=== PATIENT | female | born 1955 | race Two or more races ===

== ENCOUNTER 2018-01-01 12:28 | Emergency (ER) | payer BC ==
[2018-01-01 12:44] VITALS: BMI 22.8
--- NOTE | 2018-01-01 13:10 | PDOC ---
Attending Attestation - Resident Resident Name: Calvin Recinos - ED Attending Attestation I have performed the following: I have examined & evaluated the patient, The case was reviewed & discussed with the resident, I agree w/resident's findings & plan, Exceptions are as noted - HPI HPI: 01/01/18 13:20 Ms Frye is a 62 yo F who presents to the ER from ENT office due to syncope x 2 The patient states that she has had dizziness, last night on account of her dizziness, she fell twice No head trauma, No LOC Was seen in the office today Told that she has a right ear infection No chest pain No palpitations No shortness of breath No seizure like activity - Physicial Exam PE: 01/01/18 13:30 On exam: RRR CTA Right ear inflammation No abd tenderness - Medical Decision Making 01/01/18 13:30 Will do: Labs EKG IV hydration Will discharge to home Labs WN with the exception of transaminitis Not severe Unclear cause Pt asked to follow up with PMD Clinical Impression: ear infection, initial presentation vasovagal syncope, initial presentation
[2018-01-01] MEDS ORDERED: SODIUM CHLORIDE 1,000 ML IV STA (13:17)
[2018-01-01 13:54] VITALS: TEMP 99.3
--- NOTE | 2018-01-01 14:00 | PDOC ---
History of Present Illness - General Chief Complaint: Syncope/Near Syncope Stated Complaint: EARACHE, LIGHTHEADED Time Seen by Provider: 01/01/18 12:57 History Source: Patient Exam Limitations: No Limitations - History of Present Illness Initial Comments: 01/01/18 13:55 Patient is a 62F with history of enlarged heart here today complaining of syncope last night. She states she was in the bathroom when she started feeling dizzy and fell to the ground. She denies head trauma. She states that she was quickly conscious again and stood up to leave the bathroom when she started feeling dizzy again and fell to the ground in her bedroom. She again regained consciousness again. She presented to Dr Mike (ENT) for earache and was diagnosed with an ear infection and prescribed amoxicillin. She then presented to the ED at Dr Mike's suggestion. Patient has been having a cold symptoms for the past few days, with decreased PO intake due to not feeling well. Past History - Past Medical History Allergies/Adverse Reactions: Allergies Allergy/AdvReac Type Severity Reaction Status Date / Time No Known Allergies Allergy Verified 01/01/18 12:39 Cardiac Disorders: Yes (enlarged) COPD: No DVT: No Diabetes: Yes (border line) - Suicide/Smoking/Psychosocial Hx Smoking History: Never smoked Have you smoked in the past 12 months: No Information on smoking cessation initiated: No Substance Use Type: None Review of Systems - Review of Systems Comments:: 01/01/18 13:59 GENERAL/CONSTITUTIONAL: No fever or chills. HEAD, EYES, EARS, NOSE AND THROAT: No change in vision. Positive for earache CARDIOVASCULAR: No chest pain or shortness of breath RESPIRATORY: Positive for cough. Negative for hemoptysis. GASTROINTESTINAL: No nausea, vomiting, diarrhea or constipation. GENITOURINARY: No dysuria, frequency, or change in urination. MUSCULOSKELETAL: No joint or muscle swelling or pain. No neck or back pain. SKIN: No rash NEUROLOGIC: No headache, vertigo, loss of consciousness, or change in strength/ sensation. ENDOCRINE: No increased thirst. No abnormal weight change HEMATOLOGIC/LYMPHATIC: No anemia, easy bleeding, or history of blood clots. ALLERGIC/IMMUNOLOGIC: No hives or skin allergy. *Physical Exam - Vital Signs Last Vital Signs Temp Pulse Resp BP Pulse Ox 99.3 F 81 18 133/75 100 01/01/18 12:41 01/01/18 12:41 01/01/18 12:41 01/01/18 12:41 01/01/18 12:41 - Physical Exam Comments: 01/01/18 14:00 GENERAL: Awake, alert, and fully oriented, in no acute distress HEAD: No signs of trauma, normocephalic, atraumatic EYES: PERRLA, EOMI, sclera anicteric, conjunctiva clear ENT: Auricles normal inspection, hearing grossly normal, nares patent, oropharynx clear without exudates. Moist mucosa NECK: Normal ROM, supple, no lymphadenopathy, JVD, or masses LUNGS: No distress, speaks full sentences, clear to auscultation bilaterally HEART: Regular rate and rhythm, normal S1 and S2, no murmurs, rubs or gallops, peripheral pulses normal and equal bilaterally. ABDOMEN: Soft, nontender, normoactive bowel sounds. No guarding, no rebound. No masses EXTREMITIES: Normal inspection, Normal range of motion, no edema. No clubbing or cyanosis. NEUROLOGICAL: Cranial nerves II through XII grossly intact. Normal speech, no focal sensorimotor deficits SKIN: Warm, Dry, normal turgor, no rashes or lesions noted. ED Treatment Course - LABORATORY CBC & Chemistry Diagram: 01/01/18 15:02 01/01/18 14:30 - RADIOLOGY Radiology Studies Ordered: Category Date Time Status CHEST X-RAY PORTABLE* [RAD] Stat Radiology 01/01/18 13:17 Taken Medical Decision Making - Medical Decision Making 01/01/18 14:00 Patient is 62F with history of enlarged heart here today with syncope. History suggests vasovagal syncope, but will evaluate for arrhythmia, acs. Will treat with fluids. Will workup with cbc, cmp, cxr, trop, ekg, cxr. 01/01/18 14:04 CXR shows no acute cardiopulmonary process. 01/01/18 15:32 CBC normal. CMP reassuring. Troponin undetectable. EKG shows normal sinus rhythm with rate of 77. No st elevation/depressions. Normal ID/QRS/QTc. T wave inversion in III. Patient is SF syncope negative, believe patient most likely had an episode of vasovagal syncope, has good outpatient follow up. Asymptomatic today in the ED. Will discharge with return precautions and pcp follow up. *DC/Admit/Observation/Transfer Diagnosis at time of Disposition: Syncope - Discharge Dispostion Disposition: HOME Condition at time of disposition: Good Admit: No - Referrals - Patient Instructions Printed Discharge Instructions: DI for Syncope in Adults (Fainting) Additional Instructions: Please return if you have any new, worsening or concerning symptoms. Please follow up with your primary care physician in the next week. - Post Discharge Activity
[2018-01-01 14:59] LABS: ALBUMIN 3.8 g/dl (3.4-5.0); ANION GAP 4 (8-16); BILIRUBIN,TOTAL 0.7 mg/dL (0.2-1.0); BLOOD UREA NITROGEN 16 mg/dL (7-18); CALCIUM 9.1 mg/dL (8.5-10.1); CHLORIDE 101 mmol/L (98-107); CO2 29 mmol/L (21-32); CREATININE 1.1 mg/dL (0.55-1.02); GLUCOSE,RANDOM 96 mg/dL (74-106); SGPT/ALT 83 U/L (12-78); SODIUM 134 mmol/L (136-145); TOT PROT 9.1 g/dl (6.4-8.2)
[2018-01-01 15:02] LABS: ALK PHOS 128 U/L (45-117); MAGNESIUM 1.9 mg/dL (1.8-2.4); POTASSIUM 4.5 mmol/L (3.5-5.1); SGOT/AST 60 U/L (15-37)
[2018-01-01 15:24] LABS: HEMATOCRIT 38.8 % (32.4-45.2); MCH 26.2 pg (25.7-33.7); MCHC 33.5 g/dl (32.0-36.0); MEAN CELL VOLUME 78.2 fl (80-96); MEAN PLT VOLUME 10.9 fl (7.5-11.1); PLATELET COUNT 154 K/MM3 (134-434); RBC 4.95 M/mm3 (3.60-5.2); RDW 14.5 % (11.6-15.6); WHITE BLOOD COUNT 4.3 K/mm3 (4.0-10.0)
--- NOTE | 2018-01-04 11:38 | EKG ---
Test Reason : Blood Pressure : / mmHG Vent. Rate : 077 BPM Atrial Rate : 077 BPM P-R Int : 128 ms QRS Dur : 092 ms QT Int : 382 ms P-R-T Axes : 041 048 016 degrees QTc Int : 432 ms NORMAL SINUS RHYTHM NONSPECIFIC T WAVE ABNORMALITY ABNORMAL ECG NO PREVIOUS ECGS AVAILABLE Confirmed by LAUREN DUNN MD ([id number]) on 01/04/2018 11:38:47 AM Referred By: Confirmed By:LAUREN DUNN MD
== END 2018-01-01 15:47 | disposition home or self-care (01) ==
LOC: JER 12:28
PROC: 3E0337Z Introduction of Electrolytic and Water Balance Substance into Peripheral Vein, Percutaneous Approach (ICD-10-PCS; principal; 2018-01-01)
DX: R55 Syncope and collapse (principal); I51.7 Cardiomegaly; W18.39XA Other fall on same level, initial encounter; Y93.89 Activity, other specified; Y92.032 Bedroom in apartment as the place of occurrence of the external cause
CPT/HCPCS: 36415; 71045-TC-FY; 80053; 82550; 83735; 84484; 85027; 93005; 93010; 99282-25; J7030